=== PATIENT | female | born 1995 | race African-American/Black ===

== ENCOUNTER 2025-01-27 11:48 | Emergency (ER) | payer MEDICAID ==
[~2025-01-27] VITALS: Ht 160 cm; Wt 52.3 kg
[2025-01-27 11:57] VITALS: TEMP 98.1
[2025-01-27 12:30] VITALS: BP 115/74; PULSE 89; RESP 16; O2SAT 99
[2025-01-27] MEDS: PERTUSS(ACELL),DIPH,TET/PF 0.5 ML SYRINGE [ADULT] IM. ONE (13:42)
== END 2025-01-27 14:43 | disposition home or self-care (01) ==
LOC: EMS 11:48
DX: S61.216A Laceration without foreign body of right little finger without damage to nail, initial encounter (principal); F12.90 Cannabis use, unspecified, uncomplicated; W26.0XXA Contact with knife, initial encounter; Y93.G1 Activity, food preparation and clean up; Y92.89 Other specified places as the place of occurrence of the external cause; Y99.8 Other external cause status
CPT/HCPCS: 12001; 90471; 90715; 99283